=== PATIENT | male | born 1995 | race Asian ===

== ENCOUNTER 2017-06-30 00:38 | Inpatient (IN) | payer OTHER ==
[~2017-06-30] VITALS: Ht 172.7 cm; Wt 74.0 kg
[2017-06-30 01:12] LABS: BASOPHIL (%) 0.3 % (0-1); BASOPHIL COUNT 0.1 K/uL (0-0.1); EOSINOPHIL (%) 0.2 % (0-5); HEMATOCRIT 45.1 % (38.0-50.0); HEMOGLOBIN 15.6 G/DL (12.5-16.6); IMMATURE GRANULOCYTE (%) 0.6 % (0.0-0.7); LYMPHOCYTE (%) 12.2 % (15-42); LYMPHOCYTE COUNT 2.2 K/uL (1.0-2.8); MCH 28.8 PG (29.0-34.0); MCHC 34.6 G/DL (30.0-36.0); MCV 83.4 FL (86-99); MONOCYTE (%) 6.8 % (3-12); MONOCYTE COUNT 1.2 K/uL (0-0.8); NEUTROPHIL (%) 79.9 % (45-76); NEUTROPHIL COUNT 14.1 K/uL (1.8-6.4); PLATELET COUNT 251 K/uL (156-360); RBC DIS.WIDTH-CV 11.8 % (11.8-14.6); RBC DIS.WIDTH-SD 35.5 % (39-53); RED BLOOD COUNT 5.41 M/uL (4.00-5.50); WHITE BLOOD COUNT 17.7 K/uL (4.1-10.2)
[2017-06-30 01:19] LABS: CHLORIDE 104 mEq/L (99-109); POTASSIUM 3.5 mEq/L (3.7-5.4); SODIUM 141 mEq/L (136-147)
[2017-06-30 01:20] LABS: PTT 26.5 SEC (25-37)
[2017-06-30 01:21] LABS: GLUCOSE 113 mg/dL (70-99)
[2017-06-30 01:24] LABS: SERUM ETHYL ALCOHOL < 10 mg/dL
[2017-06-30 01:25] LABS: CREATININE 0.9 mg/dL (0.6-1.3)
[2017-06-30 01:26] LABS: UREA NITROGEN (BUN) 22 mg/dL (9-23)
[2017-06-30 01:27] LABS: GFR ESTIMATE (CALCULATED) > 59 mL/min/ (58.99-99999)
[2017-06-30 11:50] VITALS: BP 126/61
[2017-06-30 15:15] VITALS: BP 116/56
[2017-06-30 19:29] VITALS: BP 122/74
[2017-06-30 23:19] VITALS: BP 118/59
[2017-07-01 03:37] VITALS: BP 112/62
[2017-07-01 06:35] LABS: BASOPHIL (%) 0.2 % (0-1); EOSINOPHIL (%) 0.1 % (0-5); HEMATOCRIT 34.5 % (38.0-50.0); HEMOGLOBIN 11.7 G/DL (12.5-16.6); IMMATURE GRANULOCYTE (%) 0.2 % (0.0-0.7); LYMPHOCYTE (%) 18.3 % (15-42); LYMPHOCYTE COUNT 1.7 K/uL (1.0-2.8); MCH 28.7 PG (29.0-34.0); MCHC 33.9 G/DL (30.0-36.0); MCV 84.6 FL (86-99); MONOCYTE (%) 12.9 % (3-12); MONOCYTE COUNT 1.2 K/uL (0-0.8); NEUTROPHIL (%) 68.3 % (45-76); NEUTROPHIL COUNT 6.2 K/uL (1.8-6.4); PLATELET COUNT 184 K/uL (156-360); RBC DIS.WIDTH-SD 36.8 % (39-53); RED BLOOD COUNT 4.08 M/uL (4.00-5.50); WHITE BLOOD COUNT 9.1 K/uL (4.1-10.2)
[2017-07-01] MEDS ORDERED: HYDROCODON-ACE1 EAC7 PO ×2 (08:34→20:16)
[2017-07-01] MEDS ORDERED: ASPIRIN325 MG PO (08:34)
[2017-07-01] MEDS ORDERED: COLACE100 MG PO (08:36)
[2017-07-01 08:38] VITALS: BP 108/55
== END 2017-07-01 15:58 | disposition home or self-care (01) | DRG 492 ==
LOC: TRA 00:38 → EME 00:38 → EDBD 00:38 → ENRESERV 05:25 → SDC 06:06 → TRA 06:06 → 3EAST 11:30
PROVIDERS: Emergency Medicine; Orthopaedic Surgery
DX: S82.391B Other fracture of lower end of right tibia, initial encounter for open fracture type I or II (principal); S82.451B Displaced comminuted fracture of shaft of right fibula, initial encounter for open fracture type I or II; S00.83XA Contusion of other part of head, initial encounter; S00.03XA Contusion of scalp, initial encounter; W20.8XXA Other cause of strike by thrown, projected or falling object, initial encounter; S80.211A Abrasion, right knee, initial encounter; Y93.23 Activity, snow (alpine) (downhill) skiing, snowboarding, sledding, tobogganing and snow tubing; Z87.891 Personal history of nicotine dependence; Z79.82 Long term (current) use of aspirin; Y92.838 Other recreation area as the place of occurrence of the external cause
CPT/HCPCS: 70450; 71260; 72125; 72129; 72132; 73560; 73590; 74177; 76000; 80048; 85025; 85610; 85730; 86850; 86900; 86901; 93005; 99281; 99284; C1713; G0480; J0330; J0690; J1650; J1885; J2175; J2250; J2270; J3010; J7030

== ENCOUNTER 2017-07-01 19:37 | Emergency (ER) | payer OTHER ==
[~2017-07-01] VITALS: Ht 172.7 cm; Wt 66.8 kg
[~2017-07-01 19:37] MED LIST: ASPIRIN325 MG PO; COLACE100 MG PO; HYDROCODON-ACE1 EAC7 PO
[2017-07-01] MEDS ORDERED: HYDROCODON-ACE1 EAC7 PO (20:16)
[2017-07-01 21:05] VITALS: BP 121/74
== END 2017-07-01 21:09 | disposition home or self-care (01) ==
LOC: EME 19:37
DX: G89.18 Other acute postprocedural pain (principal); Z76.0 Encounter for issue of repeat prescription
CPT/HCPCS: 99281; 99284